=== PATIENT | male | born 1985 | race Caucasian/White ===

== ENCOUNTER 2019-06-04 15:42 | Emergency (ER) | payer OTHER ==
[~2019-06-04] VITALS: Ht 170.2 cm; Wt 72.6 kg
--- NOTE | 2019-06-04 16:05 | NUR ---
valorie, 89, [address], +SI/+HI "i want to cut my hand with razor". on room air, breathing evenly and unlabored. kept comfortable, sitter at bedside for constant monitoring. Will continue to monitor accordingly.
--- NOTE | 2019-06-04 16:09 | NUR ---
security at bedside and wand the patient.
--- NOTE | 2019-06-04 16:09 | NUR ---
called security for wanding
[2019-06-04 16:14] LABS: BASOPHILS % (AUTO) 0.5 % (0.0-2.0); EOSINOPHILS % (AUTO) 7.3 % (0.0-6.0); HEMATOCRIT 44 % (39-51); HEMOGLOBIN 14.9 g/dL (13.5-17.5); LYMPHOCYTES # (AUTO) 1.2 /CMM (0.8-4.8); LYMPHOCYTES % (AUTO) 20.7 % (20.0-44.0); MEAN CORPUSCULAR HGB CONC 34 g/dl (31.0-36.0); MEAN CORPUSCULAR VOLUME 90 fL (80-96); MONOCYTES # (AUTO) 0.6 /CMM (0.1-1.30); MONOCYTES % (AUTO) 10.7 % (2.0-12.0); NEUTROPHILS # (AUTO) 3.6 /CMM (1.8-8.9); NEUTROPHILS % (AUTO) 60.8 % (43.0-81.0); PLATELET COUNT (AUTO) 294 /CMM (150-450); RED BLOOD CELL COUNT(AUTO) 4.92 MIL/uL (4.5-6.0); WHITE BLOOD COUNT (AUTO) 5.9 K/uL (4.3-11.0)
[2019-06-04 16:26] LABS: CALCIUM, SERUM 8.9 mg/dL (8.5-10.1); CARBON DIOXIDE 25 mmol/L (21-32); CHLORIDE 102 mmol/L (98-107); CREATININE 0.7 mg/dL (0.6-1.3); GLUCOSE 147 mg/dL (74-106); POTASSIUM 3.4 mmol/L (3.5-5.1); SODIUM SERUM 137 mmol/L (136-145); UREA NITROGEN, BLOOD 15 mg/dL (7-18)
[2019-06-04 16:31] LABS: ALANINE AMINOTRANSFERASE 65 U/L (12-78); ALBUMIN 3.7 g/dL (3.4-5.0); ALCOHOL, BLOOD < 3 mg/dL (0-0); ALKALINE PHOSPHATASE 119 U/L (46-116); ASPARTATE AMINOTRANSFERASE 31 U/L (15-37); BILIRUBIN,DIRECT 0.1 mg/dL (0.0-0.2); BILIRUBIN,TOTAL 0.4 mg/dL (0.2-1.0); SALICYLATE < 2.8 mg/dL (2.8-20.0); TOTAL PROTEIN, SERUM 7.9 g/dL (6.4-8.2)
[2019-06-04 16:40] LABS: APPEARANCE,URINE CLEAR (CLEAR); BILIRUBIN,URINE NEGATIVE (NEGATIVE); BLOOD, URINE NEGATIVE Ery/uL (NEGATIVE); COLOR,URINE YELLOW (YELLOW); KETONES,URINE NEGATIVE (NEGATIVE); LEUKOCYTE ESTERASE ,URINE NEGATIVE (NEGATIVE); NITRITE, URINE NEGATIVE (NEGATIVE); PH,URINE 5.5 (5.0-8.0); PROTEIN,URINE NEGATIVE (NEGATIVE); UGLUCOSE NEGATIVE (NEGATIVE); UROBILINOGEN,URINE 0.2 EU/dL (0.2)
--- NOTE | 2019-06-04 19:05 | NUR ---
CALLED [facility] [phone] TO CALL US BACK.
[2019-06-04] MEDS ORDERED: POTASSIUM CHLORIDE 20 MEQ TAB.PRT.SR PO ONE (21:30)
[2019-06-05] MEDS ORDERED: POTASSIUM CHLORIDE 20 MEQ TAB.PRT.SR PO ONE (00:22)
--- NOTE | 2019-06-05 06:38 | NUR ---
PT IN BED SLEEPING. EASILY ARROUSABLE. NAD NOTED.
--- NOTE | 2019-06-05 08:22 | NUR ---
Pt. was assessed by at home independent call center agent Kal. Pt. is willing to go voluntary to [facility]. SANITATION MANAGER called [facility] intake and spoke with Korin, who informed SANITATION MANAGER to fax clinicals. Clinicals faxed to .
--- NOTE | 2019-06-05 10:46 | NUR ---
patient in bed asleep, in no distress. sitter at bedside for constant monitoring.
--- NOTE | 2019-06-05 17:04 | NUR ---
TRANSFER INFO PT ACCEPTED BY DR ROCK AT [facility] [address], RN FOR REPORT [phone] ASK FOR UNIT 1, AMBULNZ ETA [id number]
[2019-06-05] MEDS ORDERED: LORAZEPAM 1 MG TABLET ONE (17:20)
[2019-06-05] MEDS ORDERED: LORAZEPAM 1 MG TABLET PO ONE (17:30)
--- NOTE | 2019-06-05 18:11 | NUR ---
Patient is resting comfortably in bed. Easily aroused. VSS.
--- NOTE | 2019-06-05 18:31 | NUR ---
[facility] TO [facility] [id number] TRIP#[id number]
[2019-06-05 19:00] VITALS: BP 122/81
--- NOTE | 2019-06-05 19:01 | NUR ---
[facility], report given to Alvina JACKSON for francisco. Patient in no distress, denies any pain or discomfort, nor chest pain. Released belongings to patient.
== END 2019-06-05 19:01 ==
LOC: ER 15:48
DX: R45.851 Suicidal ideations (principal); R73.9 Hyperglycemia, unspecified; E87.6 Hypokalemia; F31.9 Bipolar disorder, unspecified; Z59.0 Homelessness
CPT/HCPCS: 36415; 80048; 80076; 80305; 80307; 80329; 81001; 85025; 99285; G0480; 81000-TC